=== PATIENT | male | born 1945 | race Caucasian/White ===

== ENCOUNTER 2016-10-30 11:53 | Emergency (ER) | payer OTHER, MEDICARE ==
[~2016-10-30] VITALS: Ht 165.1 cm; Wt 77.1 kg
[2016-10-30 12:28] LABS: ABSOLUTE BASOPHIL COUNT 0 /CUMM (0.0-0.2); ABSOLUTE EOSINOPHIL COUNT 0.2 /CUMM (0.0-0.7); ABSOLUTE GRANULOCYTE CT 2.7 /CUMM (1.4-6.5); ABSOLUTE LYMPH COUNT 1.3 /CUMM (1.2-3.4); ABSOLUTE MONOCYTE COUNT 0.4 /CUMM (0.10-0.60); BASOPHIL % 0.9 % (0.0-2.0); EOSINOPHIL % 3.8 % (0-5); GRANULOCYTE % 58.6 % (42.2-75.2); MEAN CORPUSCULAR HGB 30.8 PG (27.0-31.0); MEAN CORPUSCULAR HGB CONC 34.4 G/DL (33.0-37.0); MEAN CORPUSCULAR VOLUME 89.6 FL (80.0-94.0); MEAN PLATELET VOLUME 8.2 FL (7.4-10.4); PLATELET COUNT 189 /CUMM (130-400); RBC DISTRIBUTION WIDTH 14.5 % (11.5-14.5); RED BLOOD CELL CT 4.58 /CUMM (4.70-6.10); WHITE BLOOD CELL COUNT 4.5 /CUMM (4.8-10.8)
--- NOTE | 2016-10-30 13:08 | RADIOLOGY REPORT ---
EXAMINATION: XR PORTABLE CHEST CLINICAL INFORMATION: Chest pain, shortness of breath. COMPARISON: None TECHNIQUE: Portable AP 80 degrees frontal view of the chest was obtained. FINDINGS: The lung molina are symmetrically expanded and appear clear. The cardiomediastinal silhouette is moderately enlarged. Postop changes of sternotomy is noted. There is no pleural effusion present. IMPRESSION: Moderately enlarged cardiomediastinal silhouette. Clear lungs.
--- NOTE | 2016-10-30 13:46 | ED CARDIAC/CP/PALPITATIONS ---
History of Present Illness General Chief Complaint: Chest Pain Stated Complaint: CP Source: patient, family, old records, Epic Exam Limitations: no limitations Vital Signs & Intake/Output Vital Signs & Intake/Output Vital Signs Date Time Temp Pulse Resp B/P Pulse O2 O2 Flow FiO2 Ox Delivery Rate 10/30 1401 96.7 73 20 160/70 93 Room Air 10/30 1257 94 10/30 1213 97.6 94 16 177/81 96 Room Air Allergies Coded Allergies: No Known Allergies (10/30/16) Reconcile Medications Atorvastatin Calcium 20 MG TABLET 1 TAB PO DAILY CHOLESTEROL (Reported) Lisinopril 5 MG TABLET 1 TAB PO DAILY HEART (Reported) Triage Note: COMPLAINING OF CHEST "RESTRICTION" AND TINGLING IN BODY THAT STARTED 1 HOUR PROBATE PARALEGAL. HAD WORK UP FOR HEART 3 MONTHS AGO AND WAS TOLD HE WAS IN "GOOD CONDITION". PT STATES HE HAS BEEN FEELING "WEAK AND WOOZY PAST MONTH AND HALF". CURRENTLY AWAKE, ALERT, SKIN WARM AND DRY. NO ACUTE SOB Triage Nurses Notes Reviewed? yes Onset: Just prior to arrival Duration: minute(s):, better, constant, intermittent Timing: recent history Quality/Severity: severe, aching Location: central Radiation: substernal Activities at Onset: driving Prior Chest Pain/Card Workup: cardiac cath, cardiolyte scan, echocardiography, stress test, thallium scan Modifying Factors: Improves With: rest. Worsens With: exercise, movement. Nitro Today/Relief: no nitro taken today Aspirin Today: 325 mg x 1, provided at home Associated Symptoms: dizziness, fatigue, shortness of breath, weakness HPI: since July patient has had progressive weakness following multiple doses of antibiotics for bronchitis. 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 Prior to admission he had episode while driving of chest discomfort radiating to the substernal area associated with shortness of breath dizziness flushing worse with exertion improved with rest thrusting short period of time but then recurring with exertion and position change. He denies fever chills nausea vomiting diarrhea abdominal pain dysuria rash bleeding headache. Past History Travel History Traveled to [place] past 21 day No Medical History Any Pertinent Medical History? 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 No Review of Systems Review of Systems Constitutional: Reports: see HPI, malaise. EENTM: Reports: no symptoms. Respiratory: Reports: no symptoms. Cardiovascular: Reports: see HPI, chest pain. GI: Reports: no symptoms. Genitourinary: Reports: no symptoms. Musculoskeletal: Reports: no symptoms. Skin: Reports: no symptoms. Neurological/Psychological: Reports: see HPI, weakness. Hematologic/Endocrine: Reports: no symptoms. Immunologic/Allergic: Reports: no symptoms. All Other Systems: Reviewed and Negative Physical Exam Physical Exam General Appearance: well developed/nourished, alert, awake, anxious, moderate distress Head: atraumatic, normal appearance Eyes: Bilateral: normal appearance, PERRL, EOMI. Ears, Nose, Throat: normal pharynx, normal ENT inspection Neck: normal inspection, supple, full range of motion, no midline tenderness Respiratory: normal breath sounds, chest non-tender, no respiratory distress, quiet respiration, lungs clear Cardiovascular: regular rate/rhythm, normal peripheral pulses, norml femoral pulses equa Peripheral Pulses: 4+ carotid (R), 4+ carotid (L) Gastrointestinal: normal bowel sounds, soft, non-tender, no organomegaly Back: normal inspection, normal range of motion, no vertebral tenderness Extremities: normal inspection, normal capillary refill, normal range of motion, no edema Neurologic/Psych: no motor/sensory deficits, awake, alert, oriented x 3, normal gait, normal mood/affect, 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 Skin: intact, normal color, warm/dry Lymphatic: no anterior cervical mahesh Core Measures ACS in differential dx? Yes ASA ordered for poss ACS? taken PROBATE PARALEGAL Severe Sepsis Present: No Septic Shock Present: No Progress Differential Diagnosis: AMI, atrial fibrillation, hyperkalemia, hypovolemia, hyperthyroid, pericarditis Plan of Care: Orders Procedure Date/time Status Add-on Test (ER Only) 10/30 1245 Active TSH REFLEX 10/30 1221 Complete MAGNESIUM 10/30 1221 Complete D-DIMER 10/30 1221 Complete TROPONIN LEVEL 10/30 1220 Complete COMPREHENSIVE METABOLIC PANEL 10/30 1220 Complete CBC WITHOUT DIFFERENTIAL 10/30 1220 Complete EKG 10/30 1154 Active Laboratory Tests 10/30/16 1221: Anion Gap 7, Estimated GFR > 60, BUN/Creatinine Ratio 15.0, Glucose 118 H, Calcium 8.9, Magnesium 2.1, Total Bilirubin 0.6, AST 24, ALT 41, Alkaline Phosphatase 58, Troponin I < 0.01, Total Protein 6.4, Albumin 3.9, Globulin 2.5, Albumin/Globulin Ratio 1.6, TSH &T3 &Free T4 Intrp 1.630, D-Dimer < 200, CBC w Diff NO MAN DIFF REQ, RBC 4.58 L, MCV 89.6, MCH 30.8, RDW 14.5, MPV 8.2, Gran % 58.6, Lymphocytes % 28.3, Monocytes % 8.4, Eosinophils % 3.8, Basophils % 0.9, Absolute Granulocytes 2.7, Absolute Lymphocytes 1.3, Absolute Monocytes 0.4, Absolute Eosinophils 0.2, Absolute Basophils 0, PUBS MCHC 34.4 Diagnostic Imaging: Viewed by Me: Radiology Read. Discussed w/RAD: Radiology Read. CXR Impression: no acute abnormality Initial ED EKG: RBBB, no ST T wave changes Prior EKG: unchanged Rhythm Strip: normal sinus rhythm Comments: Discussed with Dr. Uma Kilpatrick [facility] requests transfer for further evaluation and management. Departure Departure Time of Disposition: 1515 Disposition: OTHER [facility] (ACUTE) Condition: Stable Clinical Impression Primary Impression: Chest pain with high risk of acute coronary syndrome Referrals: ABEL NOBLE,LEDA Mercedes (PCP/Family) Departure Forms: Customer Survey General Discharge Information Critical Care Note Critical Care Note Critical Care Time: non-applicable
[2016-10-30] MEDS ORDERED: ATORVASTATIN CA20 M1 PO (13:52)
[2016-10-30] MEDS ORDERED: LISINOPRIL5 M1 PO (13:52)
[2016-10-30 17:39] VITALS: BP 157/71
== END 2016-10-30 18:12 | disposition short-term general hospital (02) ==
LOC: ERH 11:53
PROVIDERS: Emergency Medicine
DX: R07.89 Other chest pain (principal)
CPT/HCPCS: 93005; 93010